=== PATIENT | female | born 1975 | race Caucasian/White ===

== ENCOUNTER 2020-11-06 03:17 | Emergency (ER) | payer MEDICAID, SELFPAY ==
--- NOTE | ~2020-11-06 | CT_ITS ---
EXAMINATION: CT ABDOMEN AND PELVIS WITHOUT CONTRAST CLINICAL INFORMATION: Left flank pain. Concern for kidney stone. COMPARISON: None TECHNIQUE: Multidetector volumetric imaging was performed from the superior aspect of the liver through the pubic symphysis. Sagittal and coronal reformatted images were obtained on the technologist's workstation. This CT examination was performed using dose optimization techniques as appropriate, variously including the following: *Automated exposure control *Adjustment of mA and/or kV according to patient size (this includes techniques or standardized protocols for targeted exams where dose is matched to indication/reason for exam; i.e. extremities or head) *Use of iterative reconstruction technique DLP: 473 mGy-cm FINDINGS: LUNG BASES: The visualized lung bases are unremarkable. LIVER, GALLBLADDER, AND BILIARY TREE: The liver is normal in size, shape, and attenuation. No focal hepatic lesion or biliary ductal dilatation is present. The gallbladder is unremarkable with no evidence of radiopaque gallstones, gallbladder wall thickening, or obvious pericholecystic inflammatory changes. PANCREAS: Unremarkable. SPLEEN: Unremarkable. ADRENAL GLANDS: Unremarkable. KIDNEYS AND URETERS: Left kidney: There is moderate hydronephrosis of left kidney. There is an obstructing 3 mm stone in the proximal left ureter at the level of the L3-L4 disc. Coronal image 33/65 series 7. No additional stone in the ureter. There is no stone in the kidney. Right kidney: The right kidney is normal. No calculus or hydronephrosis. BLADDER: Unremarkable. GASTROINTESTINAL TRACT: The small and large bowel are unremarkable. Moderate volume of stool throughout the colon. The appendix is normal. There is no inflammation the mesentery. ABDOMINAL WALL: No significant hernia is appreciated. LYMPH NODES: Normal. VASCULAR: Unremarkable. PELVIC VISCERA: Uterus is retroverted. There is no adnexal abnormality. OSSEOUS STRUCTURES: Unremarkable. CT/CT abdomen pelvis wo con IMPRESSION: Moderate hydronephrosis of left kidney. Obstructing 3 mm stone in the proximal left ureter.
[2020-11-06 03:59] VITALS: BP 123/69; PULSE 77; RESP 20; O2SAT 98; BMI 23.3
[2020-11-06 04:00] VITALS: BP 131/49; PULSE 61; RESP 16; TEMP 36.5; O2SAT 99; BMI 23.3
--- NOTE | 2020-11-06 04:10 | ED_ITS ---
HPI - Abdominal Pain General Chief Complaint: Abdominal Pain Stated Complaint: abd/side pain Time Seen by Provider: 11/06/20 04:09 Source: patient Mode of arrival: ambulatory Limitations: no limitations History of Present Illness HPI narrative: 45-year-old female presented with left-sided abdominal pain and left flank pain, pain started about 1 hour ago, pain is constant described as severe 10/10 localized to the left flank area and radiates down to the left lower abdominal area, nothing aggravate the pain, nothing make it better, never had episode of pain before. No urinary, bleeding no dysuria, no no urinary frequency, no blood in the urine. No fever, no chills. Related Data Previous Rx's Medication Instructions Recorded oxycodone 5 mg tablet 5 mg PO Q8H PRN #7 tab 11/06/20 Allergies Allergy/AdvReac Type Severity Reaction Status Date / Time No Known Allergies Allergy Verified 11/06/20 04:02 Review of Systems Review of Systems All other systems are reviewed and are negative Constitutional: Reports as per HPI and Reports no additional constitutional complaints Eyes: Reports as per HPI and Reports no additional eye complaints Reports system reviewed and no additional complaints, except as documented Cardiovascular: Reports as per HPI and Reports no additional cardiovascular complaints Respiratory: Reports as per HPI and Reports no additional respiratory complaints Gastrointestinal: Reports as per HPI and Reports no additional gastrointestinal complaints Genitourinary: Reports no additional female genitourinary complaints Musculoskeletal: Reports no additional musculoskeletal complaints Skin/Breast: Reports system reviewed and no additional complaints, except as docu Psychiatric: Reports no additional psychiatric complaints Endocrine: Reports no additional endocrine complaints Hematologic/Lymphatic: Reports no additional hematologic/lymphatic complaints Allergic/Immunologic: Reports no additional allergic/immunologic complaints Reports system reviewed and no additional complaints, except as documented and Reports Abnormal speech present Physical Exam Vital Signs: Vital Signs: Last Vital Signs Temp 98.2 F 11/06/20 04:29 Pulse 61 11/06/20 04:00 Resp 16 11/06/20 04:00 BP 131/49 L 11/06/20 04:00 Pulse Ox 99 11/06/20 04:00 Body Mass Index 23.3 Vital signs have been reviewed as appeared to be correct. Blood pressure normal. Heart rate normal. Respiration rate normal. Temperature normal. Oxygen saturation normal. Appearance: Alert. Oriented X3. No acute distress. Head: Normal external exam. Normocephalic. Atraumatic. No Calvillo signs noted. No raccoon eyes noted Eyes: PERRLA. EOMI. Conjunctiva and sclera normal. Eyelids normal. ENT: TM's Normal. Pharynx normal. Uvula midline. Moist mucous membranes. No t rismus noted. No drooling noted. No muffled voice noted. Neck: Normal inspection. Neck supple. FROM. No adenopathy. Thyroid Normal. No meningeal signs. No neck mass noted. CVS: Normal heart rate and rhythm. Heart sound normal. No murmurs noted. Pulses normal throughout. Respiratory: No respiratory distress. Painless inspiration. Breath sounds normal. No wheezes/rales/rhonchi noted. Chest nontender. No accessory muscle usage noted or decreased air movement noted. Abdomen: Soft, left-sided abdominal tenderness, no rebound tenderness, no guarding. Bowel sounds normal in all 4 quadrants. No distention noted. No organomegaly noted. No visible injury noted. Back: Left CVA tenderness. Full range of motion noted. Skin: Skin warm and dry. Normal skin color. Normal skin turgor. No rashe s/lesions/lacerations noted. Extremities: No lower extremity edema. Extremities exhibit normal range of motion. Extremities nontender. Neuro: Oriented X 3. Cranial nerve exam: II-XII are grossly intact No motor deficit. No sensory deficit. Reflexes normal. Course Course Course Narrative: Assessment and plan. 45-year-old female came in with left flank pain, CT/labs/UA are consistent with left proximal ureteric stone 3 mm in size, patient now is comfortable no pain after received morphine and Toradol. Will discharge the patient on oxycodone/instruction to drink plenty of fluids/follow-up with urologist Dr. Saleem. MDM - Abdominal Pain Lab Data Attestation: I reviewed the patient's lab results. Result diagrams: 11/06/20 04:43 11/06/20 04:43 Labs: Lab Results 11/06/20 11/06/20 Range/Units 04:43 04:43 WBC 11.0 H (4.8-10.8) X10*3/uL RBC 3.97 L (4.20-5.50) X10*6/uL Hgb 12.0 (12.0-16.0) g/dl Hct 36.1 L (37-47) % MCV 90.9 (80-98) fL MCH 30.2 (27.0-33.0) pg MCHC 33.2 (31.0-35.0) g/dl RDW 12.3 (11.0-16.0) % Plt Count 219 (160-400) X10*3/uL MPV 9.9 (9.4-12.3) fL Immature Gran % (Auto) 0.3 (0.0-0.4) % Neut % (Auto) 81.8 H (45-73) % Lymph % (Auto) 11.7 L (20-40) % [place] % (Auto) 5.5 (2-11) % Eos % (Auto) 0.4 (0-4) % Baso % (Auto) 0.3 (0-2) % Lymph # (Auto) 1.3 (1.2-4.9) X10*3/uL [place] # (Auto) 0.6 (0.1-1.2) X10*3/uL Eos # (Auto) 0.0 (0.0-0.4) X10*3/uL Baso # (Auto) 0.0 (0.0-0.2) X10*3/uL Abs Immat Gran (auto) 0.03 (0.00-0.03) X10*3/uL Absolute Neuts (auto) 9.0 H (2.0-8.3) X10*3/uL Absolute Nucleated RBC 0.000 (0.0-0.012) X10*3/uL Nucleated RBC % (auto) 0.0 (0.0-0.2) /100WBC Sodium 142 (135-145) mmol/L Potassium 4.3 (3.3-5.1) mmol/L Chloride 108 (96-108) mmol/L Carbon Dioxide 26 (22-29) mmol/L Anion Gap 12 (12-20) BUN 13 (9-16) mg/dL Creatinine 0.89 (0.5-1.4) mg/dL Estim Creat Clear Calc 72.5 Estimated GFR > 60 Random Glucose 106 (60-115) mg/dL Calcium 9.0 (8.4-10.2) mg/dL Total Bilirubin 0.2 (0.0-1.0) mg/dL AST 18 (5-31) U/L ALT 18 (0-31) U/L Alkaline Phosphatase 64 (39-117) U/L Total Protein 6.5 (6.5-8.0) g/dL Albumin 4.0 (3.5-5.0) g/dL Lipase 18 (8-78) U/L Imaging Data CT scan - abdomen: Radiologist's impression: Moderate hydronephrosis of left kidney. Obstructing 3 mm stone in the proximal left ureter.? Discharge Plan Discharge Clinical Impression: Calculus of kidney, Renal colic Patient Disposition: Home, Self-Care Instructions: Renal Colic (ED) Prescriptions: New oxycodone 5 mg tablet 5 mg PO Q8H PRN (Reason: pain) Qty: 7 RF: 0 Referrals: Adrian Saleem MD [Physician] - 2 days [facility] Past Medical History Medical History No known health problems Social History Social History Advance Directives: No Advance Directives Information Provided: Yes Patient : No
--- NOTE | 2020-11-06 04:13 | PC.NURSE ---
IV established, pt off to CT. Plan for labs, urine and meds upon return.
[2020-11-06] MEDS: Ketorolac Tromethamine 15 MG/ML VIAL IVPUSH (04:24)
[2020-11-06] MEDS: Morphine Sulfate 2 MG/ML CARTRIDGE 1 MG IVPUSH (04:24)
[2020-11-06] MEDS: ondansetron HCL 4 MG/2 ML VIAL IVPUSH (04:24)
[2020-11-06 04:29] VITALS: TEMP 36.8
--- NOTE | 2020-11-06 04:46 | PC.NURSE ---
Pt noted to be pain free after medications. Labs obtained and sent. Pt provided with urine cup when able. Awaiting CT results and labs.
[2020-11-06 04:48] LABS: MANUAL DIFF FLAG NO
[2020-11-06 04:54] LABS: Basophils Percent Auto 0.3 % (0-2); Eosinophils Percent Auto 0.4 % (0-4); Hematocrit 36.1 % (37-47); Imm Gran Abs Auto 0.03 X10*3/uL (0.00-0.03); Imm Gran Pct Auto 0.3 % (0.0-0.4); Lymphocytes Absolute Auto 1.3 X10*3/uL (1.2-4.9); Lymphocytes Percent Auto 11.7 % (20-40); Mean Corpuscular HGB Conc 33.2 g/dl (31.0-35.0); Mean Corpuscular Hemoglobin 30.2 pg (27.0-33.0); Mean Corpuscular Volume 90.9 fL (80-98); Mean Platelet Volume 9.9 fL (9.4-12.3); Monocytes Absolute Auto 0.6 X10*3/uL (0.1-1.2); Monocytes Percent Auto 5.5 % (2-11); Neutrophils Percent Auto 81.8 % (45-73); Platelet Count 219 X10*3/uL (160-400); Red Blood Count 3.97 X10*6/uL (4.20-5.50); Red Cell Distribution Width 12.3 % (11.0-16.0)
--- NOTE | 2020-11-06 04:59 | PC.NURSE ---
Pt provided with oral fluids to encourage urine sample.
[2020-11-06 05:09] LABS: Alanine Aminotransferase 18 U/L (0-31); Alkaline Phosphatase 64 U/L (39-117); Anion Gap 12 (12-20); Aspartate Amino Transferase 18 U/L (5-31); Bilirubin Total 0.2 mg/dL (0.0-1.0); Blood Urea Nitrogen 13 mg/dL (9-16); Carbon Dioxide 26 mmol/L (22-29); Chloride 108 mmol/L (96-108); Creatinine Clr Calc Pharmacy 72.5; Estimated Glomerular Filt Rate > 60; Glucose Random 106 mg/dL (60-115); Lipase 18 U/L (8-78); Potassium 4.3 mmol/L (3.3-5.1); Sodium 142 mmol/L (135-145); Total Protein 6.5 g/dL (6.5-8.0)
[2020-11-06 05:21] LABS: Glucose Urine UA NEG (NEG); Leukocyte Esterase Urine NEG (NEG); Nitrite Urine NEG (NEG); Specific Gravity - Urine 1.025 (1.005-1.025); UACC Culture Trigger NO; Urine Blood 2+ (NEG); Urine Ketones NEG (NEG); Urine Protein NEG (NEG-TRACE)
[2020-11-06 05:24] LABS: Appearance Urine CLEAR; Color Urine YELLOW
[2020-11-06 05:36] LABS: Bacteria Urine 2+ /LPF; Mucus Urine 2+ /LPF; Squamous Epithelial Cell Urine 2+ /LPF
[2020-11-06 06:10] VITALS: BP 124/64; PULSE 75; RESP 16; O2SAT 99
== END 2020-11-06 06:12 | disposition home or self-care (01) ==
PROVIDERS: Emergency Provider Emergency Medicine; PCP Internal Medicine
DX: N13.2 Hydronephrosis with renal and ureteral calculous obstruction (principal)
CPT/HCPCS: 36415; 74176; 80053; 81001; 83690; 85025; 96374; 96375; 99284; J1885; J2270; J2405

== ENCOUNTER 2020-11-13 06:30 | Emergency (ER) | payer MEDICAID, SELFPAY ==
--- NOTE | ~2020-11-13 | US_ITS ---
EXAMINATION: US RETROPERITONEAL (KIDNEYS AND BLADDER) CLINICAL INFORMATION: Pain. Known left hydronephrosis and proximal ureteral calculus. COMPARISON: CT stone study 11/06/2020 TECHNIQUE: Ultrasound of the kidneys and urinary bladder is performed. Grayscale imaging and color Doppler are performed. FINDINGS: RIGHT KIDNEY: 11.4 x 5.4 x 5.4 cm (SAG x AP x TRV). The kidney is normal in size, contour, and echogenicity. Renal cortical thickness is normal. No calculi or focal parenchymal lesions. No hydronephrosis. LEFT KIDNEY: 11.2 x 5.4 x 5.7 cm (SAG x AP x TRV). The kidney is normal in size, contour, and echogenicity. Renal cortical thickness is normal. There is mild hydronephrosis likely decreased from the CT 11/06/2020. No perinephric fluid. No visible intrarenal calculi. BLADDER: There are bladder is partially distended. There is no visible bladder calculus or debris at bladder base. Bilateral ureteral jets are seen on color Doppler at the bladder base. There is no bladder wall thickening or diverticulum. No pelvic ascites. US/US retroperitoneal limited IMPRESSION: 1. Left: Mild hydronephrosis likely decreased from CT 11/06/2020. No perinephric fluid. No visible renal calculi. 2. Right: No hydronephrosis or calculi. 3. Bladder: No bladder calculus or debris bladder base. Ureteral jets present consistent with patent ureters.
[2020-11-13 06:45] VITALS: BP 107/61; PULSE 56; RESP 18; TEMP 36.4; O2SAT 99; BMI 25.0
--- NOTE | 2020-11-13 06:56 | ED.ABDPAIN ---
HPI - Abdominal Pain General Chief Complaint: Abdominal Pain Stated Complaint: kidney stones Time Seen by Provider: 11/13/20 06:56 Source: patient Mode of arrival: ambulatory Limitations: no limitations History of Present Illness HPI narrative: seen here 1 week ago dx with 3mm prox obstructing L ureter stone sent home with oxycodone and flomax/steroids. Pain was not there until 5am this morning L flank pain and suprapubic pain. MD elicited complaint: flank pain Pertinent past history: kidney stones Onset (ago): hour(s) (2) Pain Consistency: constant Location: L flank Severity: severe Quality: stabbing Radiation: suprapubic Migration to: L flank Exacerbating factors: nothing Relieving factors: nothing Context: history of similar episodes Associated symptoms: nausea Treatments prior to arrival: prescription analgesics Related Data Previous Rx's Medication Instructions Recorded oxycodone 5 mg tablet 5 mg PO Q8H PRN #7 tab 11/06/20 prednisone 20 mg tablet 20 mg PO DAILY 5 Days #5 tab 11/06/20 tamsulosin 0.4 mg capsule 0.4 mg PO BEDTIME 14 Days #14 cap 11/06/20 Allergies Allergy/AdvReac Type Severity Reaction Status Date / Time No Known Allergies Allergy Verified 11/06/20 04:02 Review of Systems Review of Systems Constitutional : No Weight loss, No Fever, No Chills ENT/Mouth : No sore throat, No Rhinorrhea Eyes: No Swelling, No Redness Cardiovascular : No Chest Pain, No SOB, NoEdema Respiratory : No Cough, No Sputum, No Wheezing Gastrointestinal : Positive Nausea, Positive Vomiting, no Diarrhea, positive abdominal Pain, No Hematochezia, No Melena Genitourinary : No Dysuria, No Urinary Frequency, No Hematuria, No Urgency Musculoskeletal : No joint pain, No Myalgias, No Joint Swelling Skin : No Skin Lesions, No rash Neuro : No Weakness, No Numbness, No Dizziness, No Headache Psych : No Anxiety/Panic, No Depression Heme/Lymph: No Bruising, No Lymphadenopathy Endocrine : No Polyuria, No Polydipsia All other systems reviewed and are negative. Physical Exam Vital Signs: Vital Signs: Last Vital Signs Temp 97.6 F 11/13/20 06:45 Pulse 56 11/13/20 06:45 Resp 16 11/13/20 07:26 BP 107/61 11/13/20 06:45 Pulse Ox 99 11/13/20 06:45 Body Mass Index 25.0 Appearance: Alert. Oriented X3. No acute distress. Eyes: Pupils equal, round and reactive to light. ENT: Pharynx normal. Neck: Normal inspection. Neck supple. CVS: Normal heart rate and rhythm. Pulses normal. Respiratory: No respiratory distress. Breath sounds normal. Abdomen: Soft and mild L flank pain , mild CVA ttp Skin: Skin warm and dry. Normal skin color. Normal skin turgor. Extremities: No lower extremity edema. No calf ttp Neuro: Oriented X 3. No motor deficit. No sensory deficit. Course Course Course Narrative: no pain, no UTI, normal Cr - suspect she passed stone given US MDM - Abdominal Pain MDM Narrative Medical decision making narrative: 45 yo female with recent obstructing prox L ureter stone here with return of pain did well all week until 5am. At this time labs, UA, IVF, pain control with IV morphine and IV toradol. US to evaluate stone position. Dispo per results and findings. Lab Data Result diagrams: 11/13/20 07:17 11/13/20 07:17 Labs: Lab Results 11/13/20 11/13/20 11/13/20 Range/Units 07:17 07:17 07:17 WBC 11.7 H (4.8-10.8) X10*3/uL RBC 4.28 (4.20-5.50) X10*6/uL Hgb 12.9 (12.0-16.0) g/dl Hct 39.0 (37-47) % MCV 91.1 (80-98) fL MCH 30.1 (27.0-33.0) pg MCHC 33.1 (31.0-35.0) g/dl RDW 12.7 (11.0-16.0) % Plt Count 225 (160-400) X10*3/uL MPV 9.8 (9.4-12.3) fL Immature Gran % (Auto) 0.5 H (0.0-0.4) % Neut % (Auto) 73.8 H (45-73) % Lymph % (Auto) 18.3 L (20-40) % [place] % (Auto) 6.6 (2-11) % Eos % (Auto) 0.5 (0-4) % Baso % (Auto) 0.3 (0-2) % Lymph # (Auto) 2.1 (1.2-4.9) X10*3/uL [place] # (Auto) 0.8 (0.1-1.2) X10*3/uL Eos # (Auto) 0.1 (0.0-0.4) X10*3/uL Baso # (Auto) 0.0 (0.0-0.2) X10*3/uL Abs Immat Gran (auto) 0.06 H (0.00-0.03) X10*3/uL Absolute Neuts (auto) 8.6 H (2.0-8.3) X10*3/uL Absolute Nucleated RBC 0.000 (0.0-0.012) X10*3/uL Nucleated RBC % (auto) 0.0 (0.0-0.2) /100WBC Sodium 140 (135-145) mmol/L Potassium 4.3 (3.3-5.1) mmol/L Chloride 108 (96-108) mmol/L Carbon Dioxide 27 (22-29) mmol/L Anion Gap 9 L (12-20) BUN 12 (9-16) mg/dL Creatinine 1.02 (0.5-1.4) mg/dL Estim Creat Clear Calc 63.3 Estimated GFR 59 Random Glucose 123 H (60-115) mg/dL Calcium 9.4 (8.4-10.2) mg/dL Total Bilirubin 0.5 (0.0-1.0) mg/dL Direct Bilirubin < 0.2 (0.0-0.5) mg/dL AST 12 (5-31) U/L ALT 14 (0-31) U/L Alkaline Phosphatase 61 (39-117) U/L Total Protein 7.0 (6.5-8.0) g/dL Albumin 4.2 (3.5-5.0) g/dL Urine Color Urine Appearance Urine pH (5.0-8.0) Ur Specific [place] (1.005-1.025) Urine Protein (NEG-TRACE) MG/DL Urine Glucose (UA) (NEG) MG/DL Urine Ketones (NEG) MG/DL Urine Blood (NEG) Urine Nitrite (NEG) Ur Leukocyte Esterase (NEG) Urine RBC (0) /HPF Urine WBC (0-4) /HPF Ur Squamous Epith Cells /LPF Urine Bacteria /LPF Urine Mucus /LPF Urine Test (NEGATIVE) COVID-19 (HEATHER) Negative (Negative) COVID-19 Clin Com See Note 11/13/20 11/13/20 Range/Units 08:38 08:38 WBC (4.8-10.8) X10*3/uL RBC (4.20-5.50) X10*6/uL Hgb (12.0-16.0) g/dl Hct (37-47) % MCV (80-98) fL MCH (27.0-33.0) pg MCHC (31.0-35.0) g/dl RDW (11.0-16.0) % Plt Count (160-400) X10*3/uL MPV (9.4-12.3) fL Immature Gran % (Auto) (0.0-0.4) % Neut % (Auto) (45-73) % Lymph % (Auto) (20-40) % [place] % (Auto) (2-11) % Eos % (Auto) (0-4) % Baso % (Auto) (0-2) % Lymph # (Auto) (1.2-4.9) X10*3/uL [place] # (Auto) (0.1-1.2) X10*3/uL Eos # (Auto) (0.0-0.4) X10*3/uL Baso # (Auto) (0.0-0.2) X10*3/uL Abs Immat Gran (auto) (0.00-0.03) X10*3/uL Absolute Neuts (auto) (2.0-8.3) X10*3/uL Absolute Nucleated RBC (0.0-0.012) X10*3/uL Nucleated RBC % (auto) (0.0-0.2) /100WBC Sodium (135-145) mmol/L Potassium (3.3-5.1) mmol/L Chloride (96-108) mmol/L Carbon Dioxide (22-29) mmol/L Anion Gap (12-20) BUN (9-16) mg/dL Creatinine (0.5-1.4) mg/dL Estim Creat Clear Calc Estimated GFR Random Glucose (60-115) mg/dL Calcium (8.4-10.2) mg/dL Total Bilirubin (0.0-1.0) mg/dL Direct Bilirubin (0.0-0.5) mg/dL AST (5-31) U/L ALT (0-31) U/L Alkaline Phosphatase (39-117) U/L Total Protein (6.5-8.0) g/dL Albumin (3.5-5.0) g/dL Urine Color STRAW Urine Appearance CLEAR Urine pH 6.0 (5.0-8.0) Ur Specific [place] 1.010 (1.005-1.025) Urine Protein NEG (NEG-TRACE) MG/DL Urine Glucose (UA) NEG (NEG) MG/DL Urine Ketones NEG (NEG) MG/DL Urine Blood 2+ H (NEG) Urine Nitrite NEG (NEG) Ur Leukocyte Esterase NEG (NEG) Urine RBC 10-14 H (0) /HPF Urine WBC 0-2 (0-4) /HPF Ur Squamous Epith Cells 2+ /LPF Urine Bacteria 2+ /LPF Urine Mucus TRACE /LPF Urine Test NEGATIVE (NEGATIVE) COVID-19 (HEATHER) (Negative) COVID-19 Clin Com Discharge Plan Discharge Clinical Impression: Renal colic Patient Disposition: Home, Self-Care Instructions: Renal Colic (ED) Additional Instructions: return to ED for any worsening symptoms or concerns 1. Left: Mild hydronephrosis likely decreased from CT 11/06/2020. No perinephric fluid. No visible renal calculi. ? 2. Right: No hydronephrosis or calculi. ? 3. Bladder: No bladder calculus or debris bladder base. Ureteral jets present consistent with patent ureters. Prescriptions: No Action tamsulosin 0.4 mg capsule 0.4 mg PO BEDTIME 14 Days Qty: 14 RF: 0 prednisone 20 mg tablet 20 mg PO DAILY 5 Days Qty: 5 RF: 0 oxycodone 5 mg tablet 5 mg PO Q8H PRN (Reason: pain) Qty: 7 RF: 0 Referrals: Adrian Saleem MD [Physician] - 3 days (if not better) Stand Alone Forms: Work/School Release [facility] Past Medical History Attestation statement: The following information was validated with the patient. Medical History No known health problems Social History Social History (Updated 11/13/20 @ 07:13 by Corrine Velásquez DO) Alcohol intake: never Patient Tobacco Use Status: Never used Tobacco Use of substances other than those prescribed or required for medical reasons: No Advance Directives: No Advance Directives Information Provided: No Patient : No
[2020-11-13] MEDS: 0.9 % Sodium Chloride 1,000 ML 999 ML IVCONT (07:19)
[2020-11-13 07:24] LABS: MANUAL DIFF FLAG NO
[2020-11-13 07:25] LABS: Basophils Percent Auto 0.3 % (0-2); Eosinophils Absolute Auto 0.1 X10*3/uL (0.0-0.4); Eosinophils Percent Auto 0.5 % (0-4); Hemoglobin 12.9 g/dl (12.0-16.0); Imm Gran Abs Auto 0.06 X10*3/uL (0.00-0.03); Imm Gran Pct Auto 0.5 % (0.0-0.4); Lymphocytes Absolute Auto 2.1 X10*3/uL (1.2-4.9); Lymphocytes Percent Auto 18.3 % (20-40); Mean Corpuscular HGB Conc 33.1 g/dl (31.0-35.0); Mean Corpuscular Hemoglobin 30.1 pg (27.0-33.0); Mean Corpuscular Volume 91.1 fL (80-98); Mean Platelet Volume 9.8 fL (9.4-12.3); Monocytes Absolute Auto 0.8 X10*3/uL (0.1-1.2); Monocytes Percent Auto 6.6 % (2-11); Neutrophils Absolute Auto 8.6 X10*3/uL (2.0-8.3); Neutrophils Percent Auto 73.8 % (45-73); Platelet Count 225 X10*3/uL (160-400); Red Blood Count 4.28 X10*6/uL (4.20-5.50); Red Cell Distribution Width 12.7 % (11.0-16.0); White Blood Count 11.7 X10*3/uL (4.8-10.8)
[2020-11-13 07:26] VITALS: RESP 16
[2020-11-13] MEDS: Morphine Sulfate 4 MG/ML CARTRIDGE IVPUSH (07:26)
[2020-11-13] MEDS: Ketorolac Tromethamine 15 MG/ML VIAL IVPUSH (07:26)
[2020-11-13] MEDS: ondansetron HCL 4 MG/2 ML VIAL IVPUSH (07:26)
[2020-11-13 07:40] LABS: COVID-19 Test Negative (Negative)
[2020-11-13 07:44] LABS: Alanine Aminotransferase 14 U/L (0-31); Albumin Level 4.2 g/dL (3.5-5.0); Alkaline Phosphatase 61 U/L (39-117); Anion Gap 9 (12-20); Aspartate Amino Transferase 12 U/L (5-31); Bilirubin Direct < 0.2 mg/dL (0.0-0.5); Bilirubin Total 0.5 mg/dL (0.0-1.0); Blood Urea Nitrogen 12 mg/dL (9-16); Calcium 9.4 mg/dL (8.4-10.2); Carbon Dioxide 27 mmol/L (22-29); Chloride 108 mmol/L (96-108); Creatinine Clr Calc Pharmacy 63.3; Estimated Glomerular Filt Rate 59; Glucose Random 123 mg/dL (60-115); Potassium 4.3 mmol/L (3.3-5.1); Sodium 140 mmol/L (135-145)
[2020-11-13 08:44] LABS: Appearance Urine CLEAR; Color Urine STRAW; Glucose Urine UA NEG (NEG); Leukocyte Esterase Urine NEG (NEG); Nitrite Urine NEG (NEG); UACC Culture Trigger NO; Urine Blood 2+ (NEG); Urine Ketones NEG (NEG); Urine Protein NEG (NEG-TRACE)
[2020-11-13 08:46] LABS: UPreg QC Valid YES; Urine Pregnancy NEGATIVE (NEGATIVE)
[2020-11-13 08:56] LABS: Bacteria Urine 2+ /LPF; Mucus Urine TRACE /LPF; Squamous Epithelial Cell Urine 2+ /LPF; WBC Urine 0-2 /HPF (0-4)
== END 2020-11-13 10:24 | disposition home or self-care (01) ==
PROVIDERS: Emergency Provider Emergency Medicine; PCP Internal Medicine
DX: N23 Unspecified renal colic (principal); Z20.822 Contact with and (suspected) exposure to COVID-19; Z79.899 Other long term (current) drug therapy
CPT/HCPCS: 36415; 76775; 80048; 80076; 81001; 81025; 85025; 87635; 96361; 96374; 96375; 99284; J1885; J2270; J2405

== ENCOUNTER → 2020-11-18 15:52 | Outpatient (BNVA) | payer MEDICAID, SELFPAY | PROVIDERS: PCP Internal Medicine; Visit Provider Urology ==

== ENCOUNTER 2021-03-25 17:22 | Inpatient (IN) | payer MEDICAID, SELFPAY ==
--- NOTE | ~2021-03-25 | FL_ITS ---
EXAMINATION: XR FLUOROSCOPY WITH IMAGES CLINICAL INFORMATION: Distal ureteral stone. COMPARISON: CT scan abdomen pelvis 03/25/2021 TECHNIQUE: Fluoroscopy performed by Dr. Adrian Saleem. Fluoroscopy time: 6.8 seconds Images: 2 FINDINGS: Imaging demonstrates a wire in the distal left ureter and placement of an internally dwelling presumed left ureteral stent. Only the distal portion is included on the image. Fallopian tube occlusion device is present. FL/FL guidance in OR IMPRESSION: Fluoroscopy and spot films provided during left ureteral stent placement.
--- NOTE | ~2021-03-25 | CT_ITS ---
EXAMINATION: CT ABDOMEN AND PELVIS WITHOUT CONTRAST CLINICAL INFORMATION: Left flank pain. COMPARISON: On the ultrasound dated from 11/13/[address] abdomen/pelvis dated from 11/06/2020. TECHNIQUE: Multidetector volumetric imaging was performed from the superior aspect of the liver through the pubic symphysis. Sagittal and coronal reformatted images were obtained on the technologist's workstation. This CT examination was performed using dose optimization techniques as appropriate, variously including the following: *Automated exposure control *Adjustment of mA and/or kV according to patient size (this includes techniques or standardized protocols for targeted exams where dose is matched to indication/reason for exam; i.e. extremities or head) *Use of iterative reconstruction technique DLP: 484 mGy-cm FINDINGS: LUNG BASES: There are at least 2 subcentimeter intrabronchial nodularities in the right lung base (4:30 and 4:27) likely representing mucous secretions. No focal consolidation or pleural effusion. LIVER, GALLBLADDER, AND BILIARY TREE: The liver is normal in size, shape, and attenuation. No focal hepatic lesion or biliary ductal dilatation is present. Layering sludge within the gallbladder without evidence of hyperdense stones, wall thickening nor pericholecystic inflammatory changes. PANCREAS: Unremarkable. SPLEEN: Unremarkable. ADRENAL GLANDS: Unremarkable. KIDNEYS AND URETERS: Moderate left-sided hydroureteronephrosis with asymmetric perinephric fat stranding and a 0.5 cm calculus in the left ureterovesical junction. No other renal calculi. No right-sided hydroureteronephrosis. Accounting for limitations in the absence of intravenous contrast, no focal parenchymal abnormalities are definitely identified. BLADDER: Partially under distended limiting assessment of wall thickening. No significant perivesical fat stranding. GASTROINTESTINAL TRACT: The stomach and the small bowel are nondilated. Small hiatal hernia. Normal appendix. The colon is under distended limiting assessment of wall thickening but there are however no significant associated pericolic inflammatory changes to suspect acute colitis or acute diverticulitis. No bowel obstruction. ABDOMINAL WALL: Rectus abdominis muscle diastases with a small fat-containing umbilical hernia. LYMPH NODES: No lymphadenopathy by size criteria. VASCULAR: Unremarkable. PELVIC VISCERA: Retroflexed uterus with bilateral tubal ligation devices. Functional follicles in both ovaries with trace amount of physiologic free fluid. OSSEOUS STRUCTURES: No acute or aggressive osseous abnormalities. CT/CT abdomen pelvis wo con IMPRESSION: Moderate left hydroureteronephrosis with a 0.5 cm calculus in the left ureterovesical junction. There is asymmetric fat stranding around the left kidney and clinical correlation for superimposed infection should be obtained. Diverticulosis but no significant associated inflammatory changes to suspect acute diverticulitis although, evaluation of wall thickening is suboptimal in the setting of colonic underdistention and potentially mild acute diverticulitis could be present. Small hiatal hernia.
[2021-03-25 17:38] VITALS: BP 141/68; PULSE 62; RESP 14; TEMP 36.5; O2SAT 98; BMI 22.2
--- NOTE | 2021-03-25 18:24 | ED_ITS ---
HPI - Female Genitourinary General Chief complaint: Urogenital-Female Stated complaint: Back/Abd pain/vomiting Time Seen by Provider: 03/25/21 18:11 Source: patient Mode of arrival: ambulatory Limitations: no limitations History of Present Illness HPI Narrative: Patient comes emergency room complaining of left-sided flank pain. The pain started approximately 3 hours ago. Patient had sharp left-sided flank pain nausea and vomiting. Patient states it is the same pain she has had in the past when she had kidney stones. Patient denies fever chills, patient states that she may have a UTI, patient currently being treated for yeast infection with topical antifungal. Related Data Home Medications Medication Instructions Recorded Confirmed bupropion HCl 150 mg tablet,12 hr 150 mg PO BID 11/18/20 sustained-release drospirenone 3 mg-ethinyl 1 tab PO DAILY 11/18/20 estradiol 0.02 mg tablet Previous Rx's Medication Instructions Recorded oxycodone 5 mg tablet 5 mg PO Q8H PRN #7 tab 11/06/20 prednisone 20 mg tablet 20 mg PO DAILY 5 Days #5 tab 11/06/20 tamsulosin 0.4 mg capsule 0.4 mg PO BEDTIME 14 Days #14 cap 11/06/20 Allergies Allergy/AdvReac Type Severity Reaction Status Date / Time No Known Allergies Allergy Verified 11/18/20 15:53 Review of Systems Review of Systems: Constitutional : No Weight loss, No Fever, No Chills, No Night Sweats, No Fatigue, No Malaise ENT/Mouth : No Hearing loss, No Ear Pain, No Nasal Congestion, No Sinus Pain, No Hoarseness, No sore throat, No Rhinorrhea, No Swallowing Difficulty Eyes: No Eye Pain, No Swelling, No Redness, No Foreign Body, No Discharge, No Vision Changes Cardiovascular : No Chest Pain, No SOB, No Dyspnea on Exertion, No Orthopnea, No Edema, No Palpitations Respiratory : No Cough, No Sputum, No Wheezing, No Smoke Exposure, No Dyspnea Gastrointestinal : Complaining of nausea and vomiting No Diarrhea, No Co nstipation, No abdominal Pain, No Hematochezia, No Melena Genitourinary : no irregular bleeding, No Dysuria, No Urinary Frequency, No Hematuria, No Urinary Incontinence, No Urgency, complaining of left-sided Flank Pain, No Urinary Flow Changes, No Hesitancy, being treated for yeast infection Musculoskeletal : No joint pain, No Myalgias, No Joint Swelling Skin : No Skin Lesions, No rash Neuro : No Weakness, No Numbness, No Paresthesias, No Loss of Consciousness, No Dizziness, No Headache Psych : No Anxiety/Panic, No Depression, No SI/HI/AH/VH, No Social Issues, Heme/Lymph: No Bruising, No Bleeding,No Lymphadenopathy Endocrine : No Polyuria, No Polydipsia, No Temperature Intolerance ON LICENSE OF [facility] Past Medical History Medical History Kidney stones No known health problems Social History Social History Alcohol intake: never Patient Tobacco Use Status: Never used Tobacco Advance Directives: No Advance Directives Information Provided: Yes Patient : No Physical Exam Vital Signs: Vital Signs: Last Vital Signs Temp 98.1 F 03/25/21 20:10 Pulse 81 03/25/21 20:10 Resp 16 03/25/21 20:10 BP 113/61 03/25/21 20:10 Pulse Ox 100 03/25/21 20:10 BMI result Body Mass Index 22.2 Const: Other: Appearance: Alert. Oriented X3. No acute distress. Well- appearing Eyes: Pupils equal, round and reactive to light. ENT: Pharynx normal. Neck: Normal inspection. Neck supple. No lymph nodes noted. No crepitus CVS: Normal heart rate and rhythm. Pulses normal. Normal S1 and S2 Respiratory: No respiratory distress. Breath sounds normal. No Wheezing. No rales Abdomen: Soft and nontender. No rigidity. No distention. Back: Positive CVA tenderness left side Skin: Skin warm and dry. Normal skin color. Normal skin turgor. Extremities: No lower extremity edema. No Lacerations. No Rash Neuro: Oriented X 3. No motor deficit. No sensory deficit. Moving all extermities. No slurred speech. Course Course Course Narrative: urine analysis pending, sign out given to Dr. Jasmine [facility] - Female Genitourinary Lab Data Result diagrams: 03/25/21 18:38 03/25/21 19:52 Labs: Lab Results 03/25/21 03/25/21 Range/Units 18:38 19:52 WBC 18.5 H (4.8-10.8) X10*3/uL RBC 4.54 (4.20-5.50) X10*6/uL Hgb 13.6 (12.0-16.0) g/dl Hct 40.8 (37.0-47.0) % MCV 89.9 (80.0-98.0) fL MCH 30.0 (27.0-33.0) pg MCHC 33.3 (31.0-35.0) g/dl RDW 12.7 (11.0-16.0) % Plt Count 265 (160-400) X10*3/uL MPV 10.0 (9.4-12.3) fL Immature Gran % (Auto) 0.5 H (0.0-0.4) % Neut % (Auto) 88.9 H (45-73) % Lymph % (Auto) 6.3 L (20-40) % [place] % (Auto) 4.0 (2-11) % Eos % (Auto) 0.1 (0-4) % Baso % (Auto) 0.2 (0-2) % Lymph # (Auto) 1.2 (1.2-4.9) X10*3/uL [place] # (Auto) 0.7 (0.1-1.2) X10*3/uL Eos # (Auto) 0.0 (0.0-0.4) X10*3/uL Baso # (Auto) 0.0 (0.0-0.2) X10*3/uL Abs Immat Gran (auto) 0.09 H (0.00-0.03) X10*3/uL Absolute Neuts (auto) 16.5 H (2.0-8.3) x10*3/uL Absolute Nucleated RBC 0.000 (0.0-0.012) X10*3/uL Nucleated RBC % (auto) 0.0 (0.0-0.2) /100WBC Sodium 142 (135-145) mmol/L Potassium 4.3 (3.3-5.1) mmol/L Chloride 110 H (96-108) mmol/L Carbon Dioxide 23 (22-29) mmol/L Anion Gap 13 (12-20) BUN 16 (9-16) mg/dL Creatinine 0.95 (0.5-1.4) mg/dL Estim Creat Clear Calc 70.7 Estimated GFR > 60 Random Glucose 93 (60-115) mg/dL Calcium 8.6 D (8.4-10.2) mg/dL Discharge Plan Discharge Clinical Impression: Nephrolithiasis Patient Disposition: Still a Patient Prescriptions: No Action tamsulosin 0.4 mg capsule 0.4 mg PO BEDTIME 14 Days Qty: 14 RF: 0 prednisone 20 mg tablet 20 mg PO DAILY 5 Days Qty: 5 RF: 0 oxycodone 5 mg tablet 5 mg PO Q8H PRN (Reason: pain) Qty: 7 RF: 0
[2021-03-25] MEDS: ondansetron HCL 4 MG/2 ML VIAL IVPUSH (18:39)
[2021-03-25] MEDS: 0.9 % Sodium Chloride 1,000 ML 999 ML IVCONT ×2 (18:39→22:48)
[2021-03-25] MEDS: Ketorolac Tromethamine 30 MG/ML VIAL IVPUSH (18:39)
[2021-03-25 18:44] LABS: MANUAL DIFF FLAG NO
[2021-03-25 18:45] LABS: Basophils Percent Auto 0.2 % (0-2); Eosinophils Percent Auto 0.1 % (0-4); Hematocrit 40.8 % (37.0-47.0); Hemoglobin 13.6 g/dl (12.0-16.0); Imm Gran Abs Auto 0.09 X10*3/uL (0.00-0.03); Imm Gran Pct Auto 0.5 % (0.0-0.4); Lymphocytes Absolute Auto 1.2 X10*3/uL (1.2-4.9); Lymphocytes Percent Auto 6.3 % (20-40); Mean Corpuscular HGB Conc 33.3 g/dl (31.0-35.0); Mean Corpuscular Volume 89.9 fL (80.0-98.0); Monocytes Absolute Auto 0.7 X10*3/uL (0.1-1.2); Neutrophils Absolute Auto 16.5 x10*3/uL (2.0-8.3); Neutrophils Percent Auto 88.9 % (45-73); Platelet Count 265 X10*3/uL (160-400); Red Blood Count 4.54 X10*6/uL (4.20-5.50); Red Cell Distribution Width 12.7 % (11.0-16.0); White Blood Count 18.5 X10*3/uL (4.8-10.8)
[2021-03-25 19:46] VITALS: BP 136/86; PULSE 83; RESP 19; TEMP 36.8; O2SAT 100
[2021-03-25 20:10] VITALS: BP 113/61; PULSE 81; RESP 16; TEMP 36.7; O2SAT 100
[2021-03-25 20:12] LABS: Anion Gap 13 (12-20); Blood Urea Nitrogen 16 mg/dL (9-16); Calcium 8.6 mg/dL (8.4-10.2); Carbon Dioxide 23 mmol/L (22-29); Chloride 110 mmol/L (96-108); Creatinine Clr Calc Pharmacy 70.7; Estimated Glomerular Filt Rate > 60; Glucose Random 93 mg/dL (60-115); Potassium 4.3 mmol/L (3.3-5.1); Sodium 142 mmol/L (135-145)
[2021-03-25 20:46] LABS: Appearance Urine CLEAR; Color Urine YELLOW; Glucose Urine UA NEG (NEG); Leukocyte Esterase Urine NEG (NEG); Nitrite Urine NEG (NEG); PH 5.5 (5.0-8.0); Specific Gravity - Urine >= 1.030 (1.005-1.025); UACC Culture Trigger NO; Urine Blood 2+ (NEG); Urine Ketones >=80 MG/DL (NEG); Urine Protein NEG (NEG-TRACE)
[2021-03-25 21:28] LABS: Bacteria Urine 1+ /LPF; Mucus Urine 1+ /LPF; WBC Urine 0-2 /HPF (0-4)
[2021-03-25 21:29] LABS: Squamous Epithelial Cell Urine 2+ /LPF
[2021-03-25 21:32] LABS: UPreg QC Valid YES; Urine Pregnancy NEGATIVE (NEGATIVE)
[2021-03-25] MEDS: fentaNYL citrate/PF 100 MCG/2 ML VIAL 25 MCG IVPUSH (22:20)
[2021-03-25 22:48] VITALS: BP 113/51; PULSE 61; RESP 18; TEMP 36.7; O2SAT 98
[2021-03-25 23:21] LABS: Lactic Acid 0.6 mmol/L (0.5-2.0)
[2021-03-25 23:22] LABS: COVID-19 Test Negative (Negative)
[2021-03-25] MEDS: levoFLOXacin/D5W 500 MG/100 ML PIGGYBACK 100 MG IV (23:48)
[2021-03-26] VITALS (10 sets, daily range): BP systolic 107–123; BP diastolic 51–62; PULSE 59–78; RESP 14–18; TEMP 36.3–37.2; O2SAT 98–100
[2021-03-26] MEDS: ondansetron HCL 4 MG/2 ML VIAL IVPUSH (00:36)
[2021-03-26] MEDS: HYDROmorphone HCl 0.5 MG/0.5 ML SYRINGE 0.25 MG IVPUSH (00:38)
--- NOTE | 2021-03-26 02:00 | PC.NURSE ---
Delayed entry- assumed care of pt at 1900. Pt w/ intermittent flank pain and bladder pressure , ambulatory and able to void. Vitals and meds as charted. Awaiting inpatient bed assignment, urology following.
--- NOTE | 2021-03-26 09:09 | PC.NURSE ---
PT REPORTS TOLERABLE PAIN LEVEL AT THIS TIME. AWAITING ADMISSION ORDERS. TEXT SENT TO UROLOGY PENDING ADMISSION HAS BEEN>10HRS.
--- NOTE | 2021-03-26 09:38 | PHA.MEDREC ---
Pharmacy Consult ? Medication Reconciliation Pharmacy has completed the medication reconciliation. patient stated that she has not taken any medications recently as she stopped all medications
[2021-03-26] MEDS: 0.9 % Sodium Chloride 1,000 ML 100 ML IVCONT (09:49)
[2021-03-26] MEDS: Ketorolac Tromethamine 30 MG/ML VIAL IVPUSH (09:56)
--- NOTE | 2021-03-26 13:06 | PM.HPGS ---
History of Present Illness History of Present Illness Date of Service: 03/26/21 Chief complaint: renal stone Narrative: Fay Neal is a 45 year old female Presents to emergency room with 24 hour history of left flank pain Imaging perform Distal left ureteric stone 5 mm with associated mild hydroureteronephrosis No prior stone procedures Does not think the stone has passed No other past medical history Discussed intervention which will be organized Review of Systems Constitutional: Constitutional: Reports as per HPI and Reports no additional constitutional complaints Cardiovascular: Cardiovascular: Reports as per HPI and Reports no additional cardiovascular complaints Respiratory: Respiratory: Reports as per HPI and Reports no additional respiratory complaints Gastrointestinal: Gastrointestinal: Reports as per HPI and Reports no additional gastrointestinal complaints Genitourinary: Genitourinary: Reports as per HPI Musculoskeletal: Musculoskeletal: Reports no additional musculoskeletal complaints and Reports as per HPI Neurologic: Reports system reviewed and no additional complaints, except as documented and Reports as per HPI PMF Past Medical History Medical History Kidney stones No known health problems Social History Social History Alcohol intake: never Patient Tobacco Use Status: Never used Tobacco Advance Directives: No Advance Directives Information Provided: Yes Patient : No Meds Allergies Allergy/AdvReac Type Severity Reaction Status Date / Time No Known Allergies Allergy Verified 11/18/20 15:53 Active Medications: Current Medications Acetaminophen (Acetaminophen Supp 650 Mg Supp.Rect) 650 mg [place] Q6H PRN PRN Reason: Pain, Mild (Pain Scale 1-3) Hydromorphone HCl (Hydromorphone Hcl 1 Mg/Ml Syringe) 0.5 mg IVPUSH Q4H PRN; Protocol PRN Reason: Pain, Severe (Pain Scale 7-10) Sodium Chloride (Ns) 1,000 mls @ 100 mls/hr IVCONT .Q10H [facility] Last Admin: 03/26/21 09:49 Dose: 100 mls/hr Documented by: Ketorolac Tromethamine (Ketorolac Tromethamine 30 Mg/Ml Vial) 30 mg IVPUSH Q6H PRN PRN Reason: Pain, Mild (Pain Scale 1-3) Stop: 03/31/21 09:09 Last Admin: 03/26/21 09:56 Dose: 30 mg Documented by: Sodium Chloride (0.9 % Sodium Chloride Flush 3 Ml Syringe) [facility] Home Medications Medication Instructions Recorded Confirmed Last Taken Type No Known Home Meds 03/26/21 03/26/21 Unknown History Physical Exam Vital Signs: Vital Signs: Last Vital Signs Temp 98.1 F 03/26/21 08:47 Pulse 60 03/26/21 08:47 Resp 14 03/26/21 08:47 BP 116/60 03/26/21 08:47 Pulse Ox 98 03/26/21 08:47 BMI result Body Mass Index 22.2 Const: General: cooperative, healthy appearing, comfortable and no acute distress Orientation/consciousness: patient oriented x3 HENMT: Face and sinus: Yes normal facial exam Mouth: moist mucous membranes Neck: Neck: Yes normal visual inspection, Yes full ROM and Yes trachea midline Chest: Chest palpation & inspection: normal inspection of the chest Resp: Effort & Inspection: normal respiratory effort, able to speak in complete sentences and no respiratory distress GI: Inspection: Yes normal to inspection Back/Spine/Pelvis: Cervical Spine: normal cervical lordosis Thoracic/Lumbar Spine: thoracic and lumbar spine normal to inspection Skin: General skin exam: no rashes or lesions noted Neuro: General: patient oriented x3, tone normal and moves all extremities Extrem: General: Yes normal to inspection and Yes capillary refill normal Results Results Labs: Short CBC 03/25/21 Range/Units 18:38 WBC 18.5 H (4.8-10.8) X10*3/uL Hgb 13.6 (12.0-16.0) g/dl Hct 40.8 (37.0-47.0) % Plt Count 265 (160-400) X10*3/uL BMP 03/25/21 19:52 Sodium 142 Potassium 4.3 Chloride 110 H Carbon Dioxide 23 BUN 16 Creatinine 0.95 Calcium 8.6 D Urine 03/25/21 03/25/21 Range/Units 20:39 20:39 Urine Color YELLOW Urine Appearance CLEAR Urine pH 5.5 (5.0-8.0) Ur Specific [place] >= 1.030 H (1.005-1.025) Urine Protein NEG (NEG-TRACE) MG/DL Urine Glucose (UA) NEG (NEG) MG/DL Urine Test NEGATIVE (NEGATIVE) Assessment and Plan (1) Nephrolithiasis: Status: Acute Ureteroscopy We discussed the nature of the decision and reasonable alternatives for performing the above surgery. Interventions include chemical dissolution, ESWL, ureteroscopy with laser lithotripsy and stent placement, PCNL. Options such as medical therapy were discussed. The relative uncertainties and benefits related to each alternate procedure were adequately discussed. General surgical risks including, but not limited to, pain, bleeding, infection, myocardial infarction, pulmonary embolus, deep vein thrombosis and cerebrovascular accident which may result in further hospitalization were discussed. Full disclosure of the procedure as well as all major risks, benefits and complications were discussed including but not limited to damage to the urethra, bladder and kidney infection, damage to the ureter, stent migration or malposition, scarring to the renal pelvis, remnant stone fragments, subsequent stone passage with need for secondary procedures. The overall secondary procedure rate is approximately 10-15%. The success rate of the procedure was discussed. Success of the procedure in the short-term does not necessarily guarantee that long-term success will be maintained. Suitable follow up will need to be maintained. The patient showed understanding of discussion and wishes to proceed with - cystoscopy, retrograde, ureteroscopy, possible lithotripsy/stone basketing and stent on the left side Quality Stroke Does the patient have a stroke diagnosis?: No VTE Prior VTE?: No VTE Risk Level:: Surgical - low VTE Device Contraindication: Procedure Contraindicated VTE Drug Contraindication: Treatment Not Indicated Procedures Date of Service Date of Service: 03/26/21
--- NOTE | 2021-03-26 15:32 | PC.NURSE ---
Report taken from Jose Miller RN
--- NOTE | 2021-03-26 15:49 | P.CONAN_ITS ---
Documented by User: Lorena Ferro 03/26/21 16:01 PMFSH Active Problems Active Problems: All Active Problems (Updated 03/25/21 @ 22:51 by Humaira Dominguez MD) Nephrolithiasis (Acute) Hydronephrosis (Acute) Pyelonephritis (Acute) Past Medical History Medical History Kidney stones No known health problems Family History Family history of problems with anesthesia: Yes (PONV) Surgical History Surgical History Hx of breast biopsy History of Problems with Anesthesia: Yes (PONV) Social History Social History Alcohol intake: never Patient Tobacco Use Status: Current everyday Tobacco user Tobacco use type: Cigarette Cigarettes Per Day: 4 Use of substances other than those prescribed or required for medical reasons: No Are you DNR?: No Advance Directives: No Advance Directives Information Provided: Yes Patient : No Meds Allergies Allergy/AdvReac Type Severity Reaction Status Date / Time No Known Allergies Allergy Verified 11/18/20 15:53 Active Medications: Current Medications Acetaminophen (Acetaminophen Supp 650 Mg Supp.Rect) 650 mg [place] Q6H PRN PRN Reason: Pain, Mild (Pain Scale 1-3) Hydromorphone HCl (Hydromorphone Hcl 1 Mg/Ml Syringe) 0.5 mg IVPUSH Q4H PRN; Protocol PRN Reason: Pain, Severe (Pain Scale 7-10) Sodium Chloride (Ns) 1,000 mls @ 100 mls/hr IVCONT .Q10H [facility] Last Admin: 03/26/21 09:49 Dose: 100 mls/hr Documented by: Ketorolac Tromethamine (Ketorolac Tromethamine 30 Mg/Ml Vial) 30 mg IVPUSH Q6H PRN PRN Reason: Pain, Mild (Pain Scale 1-3) Stop: 03/31/21 09:09 Last Admin: 03/26/21 09:56 Dose: 30 mg Documented by: Sodium Chloride (0.9 % Sodium Chloride Flush 3 Ml Syringe) 3 ml IVFLUSH QSHIFT [facility] Last Admin: 03/26/21 15:22 Dose: Not Given Documented by: Home Medications Medication Instructions Recorded Confirmed Last Taken Type No Known Home Meds 03/26/21 03/26/21 Unknown History Exam Exam Date and Time: March 26, 2021 1549 Height,Weight and Vital Signs: Height 5 ft 6 in Weight 62.596 kg Last Vital Signs Temp 99.0 F 03/26/21 15:11 Pulse 78 03/26/21 15:11 Resp 16 03/26/21 15:11 BP 123/62 03/26/21 15:11 Pulse Ox 98 03/26/21 15:11 Pertinent Lab Results Pertinent Lab Results: Laboratory Tests 03/25/21 03/25/21 03/25/21 18:38 19:52 20:39 WBC 18.5 H RBC 4.54 Hgb 13.6 Hct 40.8 MCV 89.9 MCH 30.0 MCHC 33.3 RDW 12.7 Plt Count 265 MPV 10.0 Immature Gran % (Auto) 0.5 H Neut % (Auto) 88.9 H Lymph % (Auto) 6.3 L [place] % (Auto) 4.0 Eos % (Auto) 0.1 Baso % (Auto) 0.2 Lymph # (Auto) 1.2 [place] # (Auto) 0.7 Eos # (Auto) 0.0 Baso # (Auto) 0.0 Abs Immat Gran (auto) 0.09 H Absolute Neuts (auto) 16.5 H Absolute Nucleated RBC 0.000 Nucleated RBC % (auto) 0.0 Sodium 142 Potassium 4.3 Chloride 110 H Carbon Dioxide 23 Anion Gap 13 BUN 16 Creatinine 0.95 Estim Creat Clear Calc 70.7 Estimated GFR > 60 Random Glucose 93 Lactic Acid Calcium 8.6 D Urine Color YELLOW Urine Appearance CLEAR Urine pH 5.5 Ur Specific [place] >= 1.030 H Urine Protein NEG Urine Glucose (UA) NEG Urine Ketones >=80 Urine Blood 2+ H Urine Nitrite NEG Ur Leukocyte Esterase NEG Urine RBC 5-9 H Urine WBC 0-2 Ur Squamous Epith Cells 2+ Urine Bacteria 1+ Urine Mucus 1+ Urine Test COVID-19 (HEATHER) COVID-19 Clin Com 03/25/21 03/25/21 03/25/21 20:39 23:02 23:02 WBC RBC Hgb Hct MCV MCH MCHC RDW Plt Count MPV Immature Gran % (Auto) Neut % (Auto) Lymph % (Auto) [place] % (Auto) Eos % (Auto) Baso % (Auto) Lymph # (Auto) [place] # (Auto) Eos # (Auto) Baso # (Auto) Abs Immat Gran (auto) Absolute Neuts (auto) Absolute Nucleated RBC Nucleated RBC % (auto) Sodium Potassium Chloride Carbon Dioxide Anion Gap BUN Creatinine Estim Creat Clear Calc Estimated GFR Random Glucose Lactic Acid 0.6 Calcium Urine Color Urine Appearance Urine pH Ur Specific [place] Urine Protein Urine Glucose (UA) Urine Ketones Urine Blood Urine Nitrite Ur Leukocyte Esterase Urine RBC Urine WBC Ur Squamous Epith Cells Urine Bacteria Urine Mucus Urine Test NEGATIVE COVID-19 (HEATHER) Negative COVID-19 Clin Com See Note Airway Mallampati Class: I TM Dist: >3cm Neck ROM: Full Loose/Missing/Broken Teeth: No Assessment and Plan Final Anesthetic Review Family History of Problems with Anesthesia: Yes (PONV) History of Problems with Anesthesia: Yes (PONV) ASA Class: II and Emergency Final Preanesthetic Review: No Changes in Pt Med Stat, Meds/Allgs Chart Reviewed, Consent Obtained/Reviewed and Anes Risks/Benef Reviewed Patient Risk: Low Procedure Risk: Low Anesthetic Plan Anesthetic Plan: GA Disposition: Standard PACU Documented by User: Humaira Casillas MD 03/26/21 16:20 [facility] Past Medical History Medical History Kidney stones No known health problems Surgical History Surgical History Hx of breast biopsy Social History Social History Alcohol intake: never Patient Tobacco Use Status: Current everyday Tobacco user Tobacco use type: Cigarette Cigarettes Per Day: 4 Use of substances other than those prescribed or required for medical reasons: No Are you DNR?: No Advance Directives: No Advance Directives Information Provided: Yes Patient : No Meds Allergies Allergy/AdvReac Type Severity Reaction Status Date / Time No Known Allergies Allergy Verified 11/18/20 15:53 Home Medications Medication Instructions Recorded Confirmed Last Taken Type No Known Home Meds 03/26/21 03/26/21 Unknown History
--- NOTE | 2021-03-26 16:36 | MHC.SHP ---
Pre-Procedural Eval Section A Date of Service: 03/26/21 The patient is an INPATIENT: Yes Changes since office visit: No Cold of Flu in the past 2 weeks, No New Medical Problems, No Changes in Medication and No Patient answered all questions The History & Physical has been completed within 30 days and I have reviewed it.: Yes Section B Chief Complaint: renal stone Allergies: Allergies Allergy/AdvReac Type Severity Reaction Status Date / Time No Known Allergies Allergy Verified 11/18/20 15:53 Plan Diagnosis/Plan: Unchanged (cystoscopy, left retrograde, ureteroscopy, laser, stent) I have reviewed the history and physical and performed a pertinent physical examination on my patient. No changes have occurred unless specified.
--- NOTE | 2021-03-26 16:55 | W.PM.OPN ---
Operative Note Operative Note Date of Service: 03/26/21 Narrative: PreOperative Diagnosis: Left distal ureteric stone Post Operative Diagnosis: Left distal ureteric stone passage Procedure: - cystoscopy, left retrograde - left dilatation of ureteric orifice under fluoroscopy - left ureteroscopy - left stent placement Surgeon: Dr Adrian Saleem Anesthesia: General Indications for procedure: 45-year-old female. Presented with 24 hour history left-sided flank pain. CT scan with distal left 5 mm stone. She did not think stone had passed. Procedure: After informed consent was verified patient was brought to the operating placed in supine position. Anesthesia was administered per protocol. Patient was placed in modified dorsal lithotomy position and prepped and draped in a sterile fashion. Safety pause time-out and side of surgery confirmed. Antibiotics confirmed. A 22 [place] cystoscope was inserted per urethra. Bladder was normal in its entirety. Both ureteric orifices were in normal position. Left ureteric orifice appeared inflamed The left ureteric orifice was cannulated and a retrograde examination was performed. No distinctive filling patent seen. Mild hydronephrosis noted. A Sensor guidewire was placed up to the level of the renal pelvis under fluoroscopy. The rigid cystoscope was removed. A Edmund dilator was placed over the Sensor guidewire and used to dilate the ureteric orifice under fluoroscopy. The dilator was removed. The semi rigid ureteral scope was placed alongside the Sensor guidewire. There appeared to be inflammation of the distal portion of the ureter. No stone detected. This was consistent with recent stone passage and edema with ureteric occlusion. A decision was made to place stent. A 6 [place] by 24cm double-J stent was placed into the renal pelvis and bladder under a combination of fluoroscopy and direct visualization. The bladder was emptied. The patient tolerated the procedure well and was extubated in the operating room, and transferred in stable condition to the recovery area. Pathology: None Drains: 6 [place] by 24 cm double-J stent
--- NOTE | 2021-03-26 17:01 | PM.DS ---
DS: Providers Provider Date of Service: 03/26/21 Date of admission: 03/26/21 09:11 Date of discharge: 03/26/21 Primary care physician: Gavin Dolan MD Admitting clinician: Adrian Saleem Attending physician on discharge: Adrian Saleem DS: Diagnosis Discharge Diagnosis (1) Nephrolithiasis: Start date: 03/25/21 Start time: 17:01 Status: Acute DS: Summary Hospital Course Hospital Course: Underwent procedure with ureteroscopy and stent placement on left side Status at Discharge Functional status at discharge: independent ambulation Overall status at discharge: patient is back to baseline Time Spent with Patient Time attestation: Total time spent providing and/or coordinating discharge services: Discharge coordination time: Less than 30 minutes Quality: Stroke Does the patient have a stroke diagnosis?: No Physical Exam Vital Signs: Vital Signs: Last Vital Signs Temp 99.0 F 03/26/21 15:11 Pulse 78 03/26/21 15:11 Resp 16 03/26/21 15:11 BP 123/62 03/26/21 15:11 Pulse Ox 98 03/26/21 15:11 BMI result Body Mass Index 22.2 DS: Data Data Completed and Pending Labs on day of discharge: Laboratory Results - last 24 hr 03/25/21 03/25/21 03/25/21 18:38 19:52 20:39 WBC 18.5 H RBC 4.54 Hgb 13.6 Hct 40.8 MCV 89.9 MCH 30.0 MCHC 33.3 RDW 12.7 Plt Count 265 MPV 10.0 Immature Gran % (Auto) 0.5 H Neut % (Auto) 88.9 H Lymph % (Auto) 6.3 L [place] % (Auto) 4.0 Eos % (Auto) 0.1 Baso % (Auto) 0.2 Lymph # (Auto) 1.2 [place] # (Auto) 0.7 Eos # (Auto) 0.0 Baso # (Auto) 0.0 Abs Immat Gran (auto) 0.09 H Absolute Neuts (auto) 16.5 H Absolute Nucleated RBC 0.000 Nucleated RBC % (auto) 0.0 Sodium 142 Potassium 4.3 Chloride 110 H Carbon Dioxide 23 Anion Gap 13 BUN 16 Creatinine 0.95 Estim Creat Clear Calc 70.7 Estimated GFR > 60 Random Glucose 93 Lactic Acid Calcium 8.6 D Urine Color YELLOW Urine Appearance CLEAR Urine pH 5.5 Ur Specific [place] >= 1.030 H Urine Protein NEG Urine Glucose (UA) NEG Urine Ketones >=80 Urine Blood 2+ H Urine Nitrite NEG Ur Leukocyte Esterase NEG Urine RBC 5-9 H Urine WBC 0-2 Ur Squamous Epith Cells 2+ Urine Bacteria 1+ Urine Mucus 1+ Urine Test COVID-19 (HEATHER) COVID-19 Clin Com 03/25/21 03/25/21 03/25/21 20:39 23:02 23:02 WBC RBC Hgb Hct MCV MCH MCHC RDW Plt Count MPV Immature Gran % (Auto) Neut % (Auto) Lymph % (Auto) [place] % (Auto) Eos % (Auto) Baso % (Auto) Lymph # (Auto) [place] # (Auto) Eos # (Auto) Baso # (Auto) Abs Immat Gran (auto) Absolute Neuts (auto) Absolute Nucleated RBC Nucleated RBC % (auto) Sodium Potassium Chloride Carbon Dioxide Anion Gap BUN Creatinine Estim Creat Clear Calc Estimated GFR Random Glucose Lactic Acid 0.6 Calcium Urine Color Urine Appearance Urine pH Ur Specific [place] Urine Protein Urine Glucose (UA) Urine Ketones Urine Blood Urine Nitrite Ur Leukocyte Esterase Urine RBC Urine WBC Ur Squamous Epith Cells Urine Bacteria Urine Mucus Urine Test NEGATIVE COVID-19 (HEATHER) Negative COVID-19 Clin Com See Note Imaging Abdominal x-ray: Attestation: I personally reviewed and interpreted this imaging study as follows: Radiologist's impression: ITS Impressions Abdomen/Pelvis CT 03/25/21 19:10 IMPRESSION: Moderate left hydroureteronephrosis with a 0.5 cm calculus in the left ureterovesical junction. There is asymmetric fat stranding around the left kidney and clinical correlation for superimposed infection should be obtained. Diverticulosis but no significant associated inflammatory changes to suspect acute diverticulitis although, evaluation of wall thickening is suboptimal in the setting of colonic underdistention and potentially mild acute diverticulitis could be present. Small hiatal hernia. Discharge Plan Discharge Patient Disposition: Home, Self-Care Discharge Diagnosis: Distal left ureteric stone Referrals: Adrian Saleem MD [Physician] - 1 Week (Stent removal) Gavin Dolan MD [Primary Care Provider] - None Discharge Medications: New phenazopyridine [Pyridium] 100 mg tablet 100 mg PO TID PRN (Reason: spasm) 4 Days Qty: 12 RF: 0 sulfamethoxazole-trimethoprim [Bactrim DS] 800-160 mg tablet 1 tab PO BID 3 Days Qty: 6 RF: 0 tramadol 50 mg tablet 50 mg PO Q6H PRN (Reason: pain (scale score 4-6)) Qty: 14 RF: 0 tamsulosin 0.4 mg capsule 0.4 mg PO BEDTIME 14 Days Qty: 14 RF: 0 naproxen 500 mg tablet 500 mg PO BID PRN (Reason: pain) 7 Days Qty: 14 RF: 0 Discharge Orders: Discharge Order (Routine); Ordered 03/26/21 Ordered By: Adrian Saleem Diet: advance to usual diet Activity on Discharge: As tolerated Stand Alone Forms: Patient Portal Discharge page Care Plan Goals: Stones Health Concerns: . Plan of Treatment: Stones Assessment: Stones Patient Instructions: Ureteroscopy (DC)
[2021-03-26] MEDS: Phenazopyridine HCL 100 MG TABLET PO (17:57)
== END 2021-03-26 18:23 | disposition home or self-care (01) | DRG 465 ==
LOC: HO.ED 22:51 → HO.EDOVER 03-26 09:16
PROVIDERS: Emergency Medicine; Admitting Provider Urology; Emergency Provider Student in an Organized Health Care Education/Training Program; PCP Internal Medicine; Visit Provider Urology
PROC: 0T778DZ Dilation of Left Ureter with Intraluminal Device, Via Natural or Artificial Opening Endoscopic (ICD-10-PCS; principal; 2021-03-26 16:30)
DX: N13.2 Hydronephrosis with renal and ureteral calculous obstruction (principal); F17.210 Nicotine dependence, cigarettes, uncomplicated; Z20.822 Contact with and (suspected) exposure to COVID-19; Z71.6 Tobacco abuse counseling; Z79.899 Other long term (current) drug therapy
CPT/HCPCS: 36415; 74176; 80048; 81001; 81003; 81025; 83605; 85025; 87040; 87635; 99284; C1758; C1769; C2617; J1100; J1170; J1885; J1956; J2250; J2405; J3010; Q9967

== ENCOUNTER → 2021-04-02 10:55 | Outpatient (BNVA) | payer MEDICAID, SELFPAY | PROVIDERS: PCP Internal Medicine; Visit Provider Urology | DX: N20.0 Calculus of kidney (principal); N12 Tubulo-interstitial nephritis, not specified as acute or chronic | CPT/HCPCS: 52310; 99212 ==

== ENCOUNTER → 2021-06-04 08:52 | Outpatient (BNVA) | payer MEDICAID, SELFPAY | PROVIDERS: PCP Internal Medicine; Visit Provider Urology | DX: Z13.89 Encounter for screening for other disorder (principal) ==

== ENCOUNTER 2021-06-23 15:42 | Outpatient (REF) | payer MEDICAID, SELFPAY ==
--- NOTE | ~2021-06-23 | US_ITS ---
EXAMINATION: US RETROPERITONEAL LIMITED (RENAL ONLY) CLINICAL INFORMATION: Calculus of kidney. COMPARISON: CT abdomen pelvis 03/25/2021. Ultrasound retroperitoneal limited 11/13/2020. TECHNIQUE: Real-time imaging of the kidneys. FINDINGS: RIGHT KIDNEY: 10.0 x 4.4 x 5.3 cm (SAG x AP x TRV). The kidney is normal in size, contour, and echogenicity. Renal cortical thickness is normal. No calculi or focal parenchymal lesions. No hydronephrosis. LEFT KIDNEY: 10.0 x 5.3 x 5.3 cm (SAG x AP x TRV). The kidney is normal in size, contour, and echogenicity. Renal cortical thickness is normal. No renal calculi or focal parenchymal lesions. There is mild to moderate left renal hydronephrosis. US/US renal BI IMPRESSION: Redemonstration of mild to moderate left renal hydronephrosis correlate with the finding seen on the CT scan from March 2021. Right kidney is unremarkable normal..
== END 2021-06-23 15:43 | disposition home or self-care (01) ==
LOC: HO.US 15:42
PROVIDERS: PCP Internal Medicine; Visit Provider Urology
DX: N20.0 Calculus of kidney (principal)
CPT/HCPCS: 76775

== ENCOUNTER → 2021-07-26 09:27 | Outpatient (BNVA) | payer MEDICAID, SELFPAY | PROVIDERS: PCP Internal Medicine | DX: N20.0 Calculus of kidney (principal) | CPT/HCPCS: 99212 ==

== ENCOUNTER 2022-01-31 07:56 | Outpatient (REF) | payer MEDICAID, SELFPAY ==
--- NOTE | ~2022-01-31 | US_ITS ---
EXAMINATION: US RETROPERITONEAL LIMITED (RENAL ONLY) CLINICAL INFORMATION: Calculus of kidney. COMPARISON: Ultrasound retroperitoneal limited (renal only) 06/23/2021 and 11/13/2020. CT abdomen and pelvis without contrast 03/25/2021. TECHNIQUE: Real-time imaging of the kidneys. FINDINGS: RIGHT KIDNEY: 10.8 x 5.4 x 6.8 cm (SAG x AP x TRV). The kidney is normal in size, contour, and echogenicity. Renal cortical thickness is normal. No calculi or focal parenchymal lesions. No hydronephrosis. LEFT KIDNEY: 10.5 x 5.0 x 4.8 cm (SAG x AP x TRV). The kidney is normal in size, contour, and echogenicity. Renal cortical thickness is normal. Mild left hydronephrosis. No renal calculi or focal parenchymal lesions. US/US renal BI IMPRESSION: Mild left hydronephrosis similar to previous exams. No stone seen.
== END 2022-01-31 07:57 | disposition home or self-care (01) ==
LOC: HO.US 07:56
PROVIDERS: Visit Provider Urology
DX: N20.0 Calculus of kidney (principal)
CPT/HCPCS: 76775

== ENCOUNTER → 2022-02-04 09:45 | Outpatient (BNVA) | payer MEDICAID, SELFPAY | PROVIDERS: PCP Internal Medicine; Visit Provider Urology | DX: N13.30 Unspecified hydronephrosis (principal); Z87.442 Personal history of urinary calculi | CPT/HCPCS: 99212 ==

== ENCOUNTER 2022-06-21 08:02 | Outpatient (REF) | payer OTHER, SELFPAY ==
--- NOTE | ~2022-06-21 | US_ITS ---
EXAMINATION: US RETROPERITONEAL LIMITED (RENAL ONLY) CLINICAL INFORMATION: Personal history of urinary calculi. COMPARISON: Renal ultrasound 01/31/2022 and 06/23/2021. CT abdomen and pelvis 03/25/2021. TECHNIQUE: Real-time imaging of the kidneys. FINDINGS: RIGHT KIDNEY: 10.6 x 6.1 x 5.3 cm (SAG x AP x TRV). The kidney is normal in size, contour, and echogenicity. Renal cortical thickness is normal. No calculi or focal parenchymal lesions. No hydronephrosis. LEFT KIDNEY: 11.2 x 5.7 x 4.2 cm (SAG x AP x TRV). The kidney is normal in size, contour, and echogenicity. Renal cortical thickness is normal. No calculi or focal parenchymal lesions. There is persistent mild hydronephrosis versus parapelvic cyst. Largest cyst measuring 1.8 x 1.7 x 1.1 cm. US/US renal BI IMPRESSION: 1. There is persistent mild left hydronephrosis versus parapelvic cyst. 2. The right kidney is unremarkable.
== END 2022-06-21 08:03 | disposition home or self-care (01) ==
LOC: HO.US 08:02
PROVIDERS: Visit Provider Urology
DX: N13.30 Unspecified hydronephrosis (principal); Z87.442 Personal history of urinary calculi
CPT/HCPCS: 76775

== ENCOUNTER → 2022-07-08 09:12 | Outpatient (BNVA) | payer OTHER, SELFPAY | PROVIDERS: PCP Internal Medicine; Visit Provider Urology ==

== ENCOUNTER 2023-07-10 10:03 | Outpatient (AMB) | payer OTHER, SELFPAY ==
--- NOTE | 2023-07-10 10:08 | A.OFFVIS_ITS ---
Intake Visit Reasons: Kidney stones- follow up Intake Note: Patient presents today for a follow-up on Kidney Stones medications: vitamin b6 and estradiol Blood thinners: none Paper Tube Machine Operator Required: No Accompanied by: Self / Same As Patient Allergies No Known Allergies Allergy (Verified 07/08/22 09:35) HPI Comments Details: 07/10/2023--Fay is a 46-year-old female who presents to the office for discussion of renal US results. Tele video visit. The patient denies any renal colic or gross hematuria. She has history of kidney stones. I have reviewed recent renal ultrasound 06/21/2022, which again shows mild hydronephrosis versus parapelvic cyst. I have discussed evaluation with CT urogram for further evaluation. Plan CT urogram. Review of chart: 07/08/22-- Fay is a 46 y/o female. She is seen for the following urologic condition. - nephrolithiasis. -- LV?02/04/22--s/p stent 03/2021; fu post recent renal sono 01/31/22, I have reviewed results with her, stable finding mild left hydronephrosis. The patient is asymptomatic, denies gross hematuria or renal colic symptoms. The patient states having constipation and is managing it by increasing her water intake and MiraLAX. Renal US results reviewed?06/21/22-- Findings of persistent mild hydronephrosis versus parapelvic cyst, reported as stable and I feel this is clinically not si gnificant finding. History of nephrolithiasis. Diet sheet for renal calculi prevention was provided. Will continue to her for kidney stones. Follow-up after 1 year for tele-health visit. Renal intervention - 03/2021 stent placement Imaging - 11/2020 renal ultrasound left mild hydronephrosis, no stone seen -01/31/22- renal u/s mild left hydro, no stone seen 07/10/2023 Plan: CT urogram [facility] Medical History Kidney stones No known health problems Surgical History Hx of breast biopsy Social History Alcohol intake: never Patient Tobacco Use Status: Current everyday Tobacco user Tobacco use type: Cigarette Cigarettes Per Day: 4 Review of Systems Const All systems reviewed & are unremarkable except as noted in HPI and below Reports no additional complaints Eyes Reports no additional complaints ENT Reports no additional complaints Card Reports no additional complaints Resp Reports no additional complaints GI Reports no additional complaints Reports as per HPI Musc Reports no additional complaints Skin/Breast Reports system reviewed and no additional complaints, except as documented Neuro Reports no additional complaints Psych Reports no additional complaints Endo Reports no additional complaints Natalio/Lymph Reports no additional complaints Aller/Immun Reports no additional complaints Physical Exam Const General: cooperative, healthy appearing and no acute distress Orientation/consciousness: patient oriented x3 HEENT Head: Yes normal to inspection, Yes normocephalic and Yes atraumatic Eyes Conjunctivae: conjunctivae normal Resp Effort & Inspection: normal respiratory effort Neuro General: patient oriented x3 Psych Appearance: grossly normal Telehealth Telehealth Telehealth Platform: [employer] Location of provider rendering services: practice address Location of patient: address on file Patient Identification confirmed using: Name, : Yes Telehealth method: video Patient verbally consented to treatment: Yes Patient verbally consented to billing insurance company: Yes Patient informed of any privacy concerns related to visit: Yes Results Reviewed Results Reviewed: Date of Service: 06/21/22 US RETROPERITONEAL LIMITED (RENAL ONLY) CLINICAL INFORMATION: Personal history of urinary calculi. COMPARISON: Renal ultrasound 01/31/2022 and 06/23/2021. CT abdomen and pelvis 03/25/2021. TECHNIQUE: Real-time imaging of the kidneys. FINDINGS: RIGHT KIDNEY: 10.6 x 6.1 x 5.3 cm (SAG x AP x TRV). The kidney is normal in size, contour, and echogenicity. Renal cortical thickness is normal. No calculi or focal parenchymal lesions. No hydronephrosis. LEFT KIDNEY: 11.2 x 5.7 x 4.2 cm (SAG x AP x TRV). The kidney is normal in size, contour, and echogenicity. Renal cortical thickness is normal. No calculi or focal parenchymal lesions. There is persistent mild hydronephrosis versus parapelvic cyst. Largest cyst measuring 1.8 x 1.7 x 1.1 cm. IMPRESSION: 1. There is persistent mild left hydronephrosis versus parapelvic cyst. 2. The right kidney is unremarkable. Date of Service: 06/21/22 EXAMINATION: US RETROPERITONEAL LIMITED (RENAL ONLY) CLINICAL INFORMATION: Personal history of urinary calculi. COMPARISON: Renal ultrasound 01/31/2022 and 06/23/2021. CT abdomen and pelvis 03/25/2021. TECHNIQUE: Real-time imaging of the kidneys. FINDINGS: RIGHT KIDNEY: 10.6 x 6.1 x 5.3 cm (SAG x AP x TRV). The kidney is normal in size, contour, and echogenicity. Renal cortical thickness is normal. No calculi or focal parenchymal lesions. No hydronephrosis. LEFT KIDNEY: 11.2 x 5.7 x 4.2 cm (SAG x AP x TRV). The kidney is normal in size, contour, and echogenicity. Renal cortical thickness is normal. No calculi or focal parenchymal lesions. There is persistent mild hydronephrosis versus parapelvic cyst. Largest cyst measuring 1.8 x 1.7 x 1.1 cm. IMPRESSION: 1. There is persistent mild left hydronephrosis versus parapelvic cyst. 2. The right kidney is unremarkable. Assessment & Plan Assessment & Plan (1) History of kidney stones: Code(s): Z87.442 - Personal history of urinary calculi Category: Medical (2) Hydronephrosis: Code(s): N13.30 - Unspecified hydronephrosis Category: Medical (3) Parapelvic renal cyst: Code(s): N28.1 - Cyst of kidney, acquired Category: Medical Plan CT urogram Orders: Orders Blood Urea Nitrogen Today N13.30 - Unspecified hydronephrosis Creatinine Today N13.30 - Unspecified hydronephrosis CT urogram Today N13.30 - Unspecified hydronephrosis Patient Instructions: The patient had an opportunity to ask questions regarding treatment plan. The patient expressed understanding and agreement with the above treatment plan. The patient is aware they should contact our office by phone for worsening of their current condition or the appearance of new symptoms. Compliance is encouraged with any medications and followup testing that is ordered. It is a privilege to be allowed the opportunity to participate in the urologic care of your patient. If you have any questions or concerns regarding treatment for the above conditions please do not hesitate to contact me. The office telephone contact is [phone]. This note is constructed in part using voice recognition software. While every effort has been made to ensure accuracy parts fabricator errors may have been included. Yours sincerely, Rossi Norton MD Coding Level of Care Code Tele Est Pt Level 4 (94371) Diagnoses History of kidney stones Z87.442 Hydronephrosis N13.30 Parapelvic renal cyst N28.1
== END 2023-07-10 10:48 | disposition home or self-care (01) ==
LOC: HO.HUSH 10:03
PROVIDERS: PCP Internal Medicine; Visit Provider Urology
DX: Z87.442 Personal history of urinary calculi (principal); N13.30 Unspecified hydronephrosis; N28.1 Cyst of kidney, acquired
CPT/HCPCS: 99214

== ENCOUNTER → 2023-07-10 10:03 | Outpatient (BNVA) | payer OTHER, SELFPAY | PROVIDERS: PCP Internal Medicine; Visit Provider Urology ==

== ENCOUNTER 2023-10-13 10:44 | Outpatient (REF) | payer OTHER, SELFPAY ==
[2023-10-13 11:51] LABS: Blood Urea Nitrogen 12 mg/dL (9-16); Estimated Glomerular Filt Rate > 60
== END 2023-10-13 10:45 | disposition home or self-care (01) ==
LOC: HO.LAB 10:44
PROVIDERS: PCP Internal Medicine; Visit Provider Urology
DX: N13.30 Unspecified hydronephrosis (principal)
CPT/HCPCS: 36415; 82565; 84520

== ENCOUNTER 2023-10-19 07:49 | Outpatient (REF) | payer OTHER, SELFPAY ==
--- NOTE | ~2023-10-19 | CT_ITS ---
EXAMINATION: CT ABDOMEN AND PELVIS WITHOUT AND WITH CONTRAST CLINICAL INFORMATION: Unspecified hydronephrosis. Persistent mild hydronephrosis left kidney versus parapelvic cysts. COMPARISON: Correlation made with renal ultrasound 06/21/2022, and CT abdomen and pelvis without contrast 03/25/2021. TECHNIQUE: Noncontrast CT of the abdomen and pelvis is performed followed by split bolus contrast-enhanced images using 85 mL Omnipaque 350 contrast. Postcontrast imaging is performed during the combined nephrogram and excretion phase. Sagittal and coronal reformatted images were obtained on the technologist's workstation for both the precontrast and postcontrast phases. This CT examination was performed using dose optimization techniques as appropriate, variously including the following: *Automated exposure control *Adjustment of mA and/or kV according to patient size (this includes techniques or standardized protocols for targeted exams where dose is matched to indication/reason for exam; i.e. extremities or head) *Use of iterative reconstruction technique DLP: 561 mGy-cm Please note, due to [facility] contractual, systems, and staffing issues, an [facility] [place] was not available for review and dictation of this case until 11/15/2023. FINDINGS: LUNG BASES: -Imaged lung bases are clear bilaterally. No effusions. Normal heart size. GE junction normal. LIVER, GALLBLADDER, AND BILIARY TREE: The liver is normal in size, shape, and attenuation. No focal hepatic lesion or biliary ductal dilatation is present. Gallbladder demonstrates a suggestion of a several tiny gravel size stones layering dependently. This is not definitive. No wall thickening or inflammation of the gallbladder. PANCREAS: Unremarkable. SPLEEN: Unremarkable. ADRENAL GLANDS: Unremarkable. KIDNEYS AND URETERS: -Left kidney: -Normal unenhanced and enhanced appearance. No calculi, mass, cysts, or hydronephrosis. No pyelocalyceal filling defect. Left ureter normal. -Right kidney: -There are several parapelvic cysts present, the largest in the mid to upper pole measuring 2.6 x 1.1 cm in axial plane. -There is no renal mass, hydronephrosis, or calculus. No pyelocalyceal filling defect. Right ureter is normal. BLADDER: -Suboptimally distended but images normally without evidence of mass, wall thickening, or calculus. GASTROINTESTINAL TRACT: -There is mild diverticulosis of the sigmoid colon. No evidence of inflammation or wall thickening. Remainder of the gastrointestinal tract is normal in appearance. -Normal appendix. ABDOMINAL WALL: There is a tiny umbilical hernia. Abdominal wall is otherwise normal in appearance. LYMPH NODES: Normal. VASCULAR: Unremarkable. PELVIC VISCERA: Uterus is retroflexed. There are Essure tubal occlusion devices in place. There is a small cyst or dominant follicle in the right ovary. No adnexal masses. No free pelvic fluid. OSSEUS STRUCTURES: There are no suspicious lytic or blastic bone lesions. A subtle sclerotic focus in the right aspect of L1 is most likely a bone island, and is stable from [address]/CT urogram IMPRESSION: 1. There are several small parapelvic cysts in the left kidney. Otherwise there is no hydronephrosis, mass, calculus, or other abnormality in either kidney. 2. Ureters are normal in caliber. 3. Urinary bladder is normal in appearance allowing for suboptimally distention. 4. Mild diverticulosis of the sigmoid colon. 5. Possible tiny gravel size gallstones. This is not definitive, and correlation with right upper quadrant ultrasound may be of benefit if felt warranted. Electronically signed by: Julito Quinones MD 11/15/2023 12:37 PM EDT
[2023-10-19] MEDS: iohexoL 350 MG/ML 100 ML INFUS..BTL IV (08:34)
== END 2023-10-19 07:50 | disposition home or self-care (01) ==
LOC: HO.CT 07:49
PROVIDERS: PCP Internal Medicine; Visit Provider Urology
DX: N13.30 Unspecified hydronephrosis (principal)
CPT/HCPCS: 74178; Q9967

== ENCOUNTER → 2023-10-19 07:54 | Outpatient (BNV) | payer OTHER, SELFPAY | PROVIDERS: PCP Internal Medicine; Visit Provider Radiology Diagnostic Radiology | DX: N13.30 Unspecified hydronephrosis (principal) | CPT/HCPCS: 74178 ==

== ENCOUNTER 2024-02-09 15:37 | Outpatient (AMB) | payer OTHER, SELFPAY ==
--- NOTE | 2024-02-08 22:32 | A.OFFVIS_ITS ---
Intake Visit Reasons: [place] [facility] [place] Note: Patient is present for CT Scan follow up Urology Med: None Antibiotic Allergy:None Plant Cytologist Required: No Allergies No Known Allergies Allergy (Verified 02/09/24 15:53) Medication List - Last Reconciled 02/09/24 by Rossi Norton MD drospirenone-ethinyl estradiol 3-0.02 mg 1 tab PO DAILY estradiol 0.01%(0.1mg/gram) grams vaginal HPI Comments Details: 02/09/24-- FU CT--h/o kidney stones- Discussed results No Hydronephrosis, right parapelvic cysts. Reviewed diet management for kidney stonesI have discussed diet modification to decrease risk of forming more kidney stones. I have discussed low oxalate diet and specific foods to avoid including certain green leafy vegetables, chocalate, nuts, tea, beets, rubarb; low sodium, decreased use of animal protein and the importance of hydration drinking up to 2-2.5 liters of fluids and use of adding lemon to water to increase citrate in the diet. A pamphlet is also provided today. Detailed discussion on Type I-IV cysts, benign cysts do not enhance. 30 minutes spent in review of records pertaining to this visit and including [id number] discussion with the patient and documentation of this visit. Plan fu prn. 10/19/23--CTAP w/wo IV KIDNEYS AND URETERS: -Left kidney: -Normal unenhanced and enhanced appearance. No calculi, mass, cysts, or hydronephrosis. No pyelocalyceal filling defect. Left ureter normal. -Right kidney: -There are several parapelvic cysts present, the largest in the mid to upper pole measuring 2.6 x 1.1 cm in axial plane. -There is no renal mass, hydronephrosis, or calculus. No pyelocalyceal filling defect. Right ureter is normal. Review of chart: 07/10/2023--Fay is a 46-year-old female who presents to the office for discussion of renal US results. Tele video visit. The patient denies any renal colic or gross hematuria. She has history of kidney stones. I have reviewed recent renal ultrasound 06/21/2022, which again shows mild hydronephrosis versus parapelvic cyst. I have discussed evaluation with CT urogram for further evaluation. Plan CT urogram. 07/08/22-- Fay is a 46 y/o female. She is seen for the following urologic condition. - nephrolithiasis. -- LV?02/04/22--s/p stent 03/2021; fu post recent renal sono 01/31/22, I have reviewed results with her, stable finding mild left hydronephrosis. The patient is asymptomatic, denies gross hematuria or renal colic symptoms. The patient states having constipation and is managing it by increasing her water intake and MiraLAX. Renal US results reviewed?06/21/22-- Findings of persistent mild hydronephrosis versus parapelvic cyst, reported as stable and I feel this is clinically not significant finding. History of nephrolithiasis. Diet sheet for renal calculi prevention was provided. Will continue to her for kidney stones. Follow-up a fter 1 year for tele-health visit. Renal intervention - 03/2021 stent placement Imaging - 11/2020 renal ultrasound left mild hydronephrosis, no stone seen -01/31/22- renal u/s mild left hydro, no stone seen PFSH Medical History Kidney stones No known health problems Surgical History Hx of breast biopsy Social History Alcohol intake: never Patient Tobacco Use Status: Current everyday Tobacco user Tobacco use type: Cigarette Cigarettes Per Day: 4 Review of Systems Const All systems reviewed & are unremarkable except as noted in HPI and below Reports no additional complaints Eyes Reports no additional complaints ENT Reports no additional complaints Card Reports no additional complaints Resp Reports no additional complaints GI Reports no additional complaints Reports as per HPI Musc Reports no additional complaints Skin/Breast Reports system reviewed and no additional complaints, except as documented Neuro Reports no additional complaints Psych Reports no additional complaints Endo Reports no additional complaints Natalio/Lymph Reports no additional complaints Aller/Immun Reports no additional complaints Results Reviewed Results Reviewed: Date of Service: 10/19/23 CT ABDOMEN AND PELVIS WITHOUT AND WITH CONTRAST CLINICAL INFORMATION: Unspecified hydronephrosis. Persistent mild hydronephrosis left kidney versus parapelvic cysts. COMPARISON: Correlation made with renal ultrasound 06/21/2022, and CT abdomen and pelvis without contrast 03/25/2021. TECHNIQUE: Noncontrast CT of the abdomen and pelvis is performed followed by split bolus contrast-enhanced images using 85 mL Omnipaque 350 contrast. Postcontrast imaging is performed during the combined nephrogram and excretion phase. Sagittal and coronal reformatted images were obtained on the technologist's workstation for both the precontrast and postcontrast phases. This CT examination was performed using dose optimization techniques as appropriate, variously including the following: *Automated exposure control *Adjustment of mA and/or kV according to patient size (this includes techniques or standardized protocols for targeted exams where dose is matched to indication/reason for exam; i.e. extremities or head) *Use of iterative reconstruction technique DLP: 561 mGy-cm Please note, due to [facility] contractual, systems, and staffing issues, an [facility] [place] was not available for review and dictation of this case until 11/15/2023. FINDINGS: LUNG BASES: -Imaged lung bases are clear bilaterally. No effusions. Normal heart size. GE junction normal. LIVER, GALLBLADDER, AND BILIARY TREE: The liver is normal in size, shape, and attenuation. No focal hepatic lesion or biliary ductal dilatation is present. Gallbladder demonstrates a suggestion of a several tiny gravel size stones layering dependently. This is not definitive. No wall thickening or inflammation of the gallbladder. PANCREAS: Unremarkable. SPLEEN: Unremarkable. ADRENAL GLANDS: Unremarkable. KIDNEYS AND URETERS: -Left kidney: -Normal unenhanced and enhanced appearance. No calculi, mass, cysts, or hydronephrosis. No pyelocalyceal filling defect. Left ureter normal. -Right kidney: -There are several parapelvic cysts present, the largest in the mid to upper pole measuring 2.6 x 1.1 cm in axial plane. -There is no renal mass, hydronephrosis, or calculus. No pyelocalyceal filling defect. Right ureter is normal. BLADDER: -Suboptimally distended but images normally without evidence of mass, wall thickening, or calculus. GASTROINTESTINAL TRACT: -There is mild diverticulosis of the sigmoid colon. No evidence of inflammation or wall thickening. Remainder of the gastrointestinal tract is normal in appearance. -Normal appendix. ABDOMINAL WALL: There is a tiny umbilical hernia. Abdominal wall is otherwise normal in appearance. LYMPH NODES: Normal. VASCULAR: Unremarkable. PELVIC VISCERA: Uterus is retroflexed. There are Essure tubal occlusion devices in place. There is a small cyst or dominant follicle in the right ovary. No adnexal masses. No free pelvic fluid. OSSEUS STRUCTURES: There are no suspicious lytic or blastic bone lesions. A subtle sclerotic focus in the right aspect of L1 is most likely a bone island, and is stable from [address]/CT urogram IMPRESSION: 1. There are several small parapelvic cysts in the left kidney. Otherwise there is no hydronephrosis, mass, calculus, or other abnormality in either kidney. 2. Ureters are normal in caliber. 3. Urinary bladder is normal in appearance allowing for suboptimally distention. 4. Mild diverticulosis of the sigmoid colon. 5. Possible tiny gravel size gallstones. This is not definitive, and correlation with right upper quadrant ultrasound may be of benefit if felt warranted. Assessment & Plan Assessment & Plan (1) Parapelvic renal cyst: Code(s): N28.1 - Cyst of kidney, acquired Category: Medical (2) History of kidney stones: Code(s): Z87.442 - Personal history of urinary calculi Category: Medical Plan FU prn Patient Instructions: The patient had an opportunity to ask questions regarding treatment plan. The patient expressed understanding and agreement with the above treatment plan. The patient is aware they should contact our office by phone for worsening of their current condition or the appearance of new symptoms. Compliance is encouraged with any medications and followup testing that is ordered. It is a privilege to be allowed the opportunity to participate in the urologic care of your patient. If you have any questions or concerns regarding treatment for the above conditions please do not hesitate to contact me. The office telephone contact is [phone]. This note is constructed in part using voice recognition software. While every effort has been made to ensure accuracy president ergonomic consulting errors may have been included. Yours sincerely, Rossi Norton MD Coding Level of Care Code Est Pt Level 4 (79128) Diagnoses Parapelvic renal cyst N28.1 History of kidney stones Z87.442
== END 2024-02-09 15:58 | disposition home or self-care (01) ==
PROVIDERS: PCP Internal Medicine; Visit Provider Urology
DX: N28.1 Cyst of kidney, acquired (principal); Z87.442 Personal history of urinary calculi
CPT/HCPCS: 99214

== ENCOUNTER → 2024-02-09 15:37 | Outpatient (BNVA) | payer OTHER, SELFPAY | PROVIDERS: PCP Internal Medicine; Visit Provider Urology ==